=== PATIENT | male | born 1990 | race Caucasian/White ===

== ENCOUNTER → 2022-04-29 | Outpatient (CLI) | payer BC ==
--- NOTE | 2022-04-29 16:04 | Diagnostic Imaging Report ---
PROCEDURE: US Scrotum. TECHNIQUE: Multiple Real-time grayscale images were obtained over the scrotum in various projections bilaterally. INDICATION: Prior history of right testicular torsion with orchiectomy. Patient has left testicular pain. FINDINGS: The right testicle is surgically absent. The left testicle measures 6.0 x 3.3 x 4.3 cm. The left testicle shows homogeneous echotexture. No discrete testicular mass is seen. There is blood flow to the left testicle. No hydrocele or varicocele is detected. The left epididymis is unremarkable. IMPRESSION: Status post right orchiectomy. The left testicle is unremarkable. No mass or vascular compromise is detected. Dictated by: Dictated on workstation # [id number]
== END ==
LOC: RAD 15:15
PROVIDERS: ATTEND Urology
DX: N50.812 Left testicular pain (principal); Z87.718 Personal history of other specified (corrected) congenital malformations of genitourinary system; Z90.79 Acquired absence of other genital organ(s)
CPT/HCPCS: 76870

== ENCOUNTER → 2022-05-05 | Outpatient (CLI) | payer BC ==
--- NOTE | 2022-05-05 09:52 | Diagnostic Imaging Report ---
INDICATION: Low back pain. FINDINGS: Alignment of the lumbar spine is normal. The vertebral body heights are maintained. The disc spaces appear preserved. There is some mild lower lumbar facet hypertrophy at L4-L5 and L5-S1. There is no identifiable pars defect. IMPRESSION: 1. Normal height and alignment of the lumbar spine. The disc spaces appear maintained. 2. Mild lower lumbar facet hypertrophy without plain film findings of a pars defect. Dictated by: Dictated on workstation # [id number]
== END ==
LOC: RAD FS 08:51
PROVIDERS: ATTEND Registered Nurse Emergency
DX: M47.816 Spondylosis without myelopathy or radiculopathy, lumbar region (principal)
CPT/HCPCS: 72100

== ENCOUNTER → 2022-05-05 | Outpatient (CLI) | payer BC ==
[2022-05-05 12:19] LABS: BILIRUBIN,URINE NEGATIVE (NEGATIVE); CLARITY,URINE SL CLOUDY; COLOR,URINE YELLOW; GLUCOSE, URINE (UA) NEGATIVE (NEGATIVE); KETONES,URINE NEGATIVE (NEGATIVE); LEUKOCYTE ESTERASE ,URINE NEGATIVE (NEGATIVE); NITRITE,URINE NEGATIVE (NEGATIVE); PROTEIN,URINE NEGATIVE (NEGATIVE)
[2022-05-05 12:35] LABS: AMORPHOUS SEDIMENT,UR FEW AMOR PHOSPHATE /LPF; BACTERIA,URINE NEGATIVE /HPF; RBC,URINE 0-2 /HPF; WBC,URINE RARE /HPF
== END ==
LOC: LAB FS 12:01
PROVIDERS: ATTEND Registered Nurse Emergency
DX: Z48.02 Encounter for removal of sutures (principal); M54.50 Low back pain, unspecified; R10.9 Unspecified abdominal pain
CPT/HCPCS: 81000